=== PATIENT | male | born 1990 | race Hispanic/Latino ===

== ENCOUNTER 2019-08-22 22:04 | Emergency (ER) | payer SELFPAY ==
[2019-08-22] MEDS ORDERED: ACETAMINOPHEN 500 MG TAB ONE (22:48)
--- NOTE | 2019-08-23 00:29 | ER ---
Nurse's Notes [facility] Name: Tayo Lacy Age: 29 yrs Sex: Male : 1990 Arrival Date: 08/22/2019 Time: 22:04 Bed 17 Private MD: Diagnosis: Acute pharyngitis Presentation: 08/21 22:31 Chief complaint: Patient states: SYMPTOMS STARTED FOUR DAYS AGO. SORE THROAT WITH rv HEADACHE AND BODY ACHES. ALSO COMPLAINS EPISODES OF DISORIENTATION. Coronavirus screen: Surgical mask placed on patient. Patient moved to private room, placed in contact and droplet isolation with eye protection until further assessment. Patient reports a cough. Patient denies shortness of breath or difficulty breathing. Patient reports a measured and/or subjective temperature greater than 100.4F. Patient denies travel on a cruise ship or to a country the [facility] currently lists as an affected area. Patient denies contact with known and/or suspected case of COVID-19. Ebola Screen: No symptoms or risks identified at this time. Initial Sepsis Screen: Does the patient meet any 2 criteria? No. Patient's initial sepsis screen is negative. Does the patient have a suspected source of infection? No. Patient's initial sepsis screen is negative. Risk Assessment: Do you want to hurt yourself or someone else? Patient reports no desire to harm self or others. Onset of symptoms was August 18, 2019 at 08:00. 22:31 Method Of Arrival: Ambulatory rv 22:31 Acuity: JORGE 3 rv 08/22 10:26 Coronavirus screen: [facility] has been notified of hb person under investigation for COVID-19. PUI#: [id number]. Triage Assessment: 08/21 22:33 General: Appears comfortable, Behavior is calm, cooperative. Pain: Complains of pain in rv GENERALIZED. EENT: Throat has enlarged tonsils. Neuro: Level of Consciousness is awake, alert, obeys commands, Oriented to person, place, time, situation. Cardiovascular: Patient's skin is warm and dry. Respiratory: Airway is patent. Derm: Skin is intact. Historical: - Allergies: 22:33 No Known Allergies; rv - PMHx: 22:33 None; rv - PSHx: 22:33 None; rv - Immunization history:: Adult Immunizations up to date. - Social history:: Smoking status: Patient reports the use of cigarette tobacco products, denies chronic smoking, but will smoke occasionally. Screenin:35 Abuse screen: Denies threats or abuse. Denies injuries from another. Nutritional rv screening: No deficits noted. Tuberculosis screening: No symptoms or risk factors identified. Fall Risk None identified. Assessment: 08/22 00:16 Reassessment: Patient and/or family updated on plan of care and expected duration. Pain rv level reassessed. Patient is alert, oriented x 3, equal unlabored respirations, skin warm/dry/pink. Patient states feeling better. Patient states symptoms have improved. Respiratory: Airway is patent Respiratory effort is even, unlabored, Breath sounds are clear bilaterally. Vital Signs: 08/21 22:31 BP 133 / 83; Pulse 96; Resp 18; Temp 100.9; Pulse Ox 100% ; Weight 97.52 kg; Height 5 rv ft. 6 in. (167.64 cm); Pain 4/10; 08/22 00:16 BP 126 / 77; Pulse 90; Resp 18; Temp 98.6; Pulse Ox 97% on R/A; rv 00:17 Temp 98.6(O); rv 00:45 BP 113 / 69; Pulse 82; Resp 17; Temp 98.5; Pulse Ox 98% on R/A; rv 08/21 22:31 Body Mass Index 34.70 (97.52 kg, 167.64 cm) rv ED Course: 08/21 22:04 Patient arrived in ED. ds1 22:33 Triage completed. rv 22:35 Sherwin Adams, RN is Primary Nurse. rv 22:35 Arm band placed on Patient placed in the treatment room, on a stretcher, Patient rv notified of wait time. 22:38 José Antonio Butt PA is PHCP. jr8 22:38 Martir Godinez MD is Attending Physician. jr8 22:45 Patient has correct armband on for positive identification. Pulse ox on. NIBP on. rv 08/22 00:45 No provider procedures requiring assistance completed. Patient did not have IV access rv during this emergency room visit. Administered Medications: 08/21 22:44 Drug: Tylenol 1000 mg Route: PO; rv 08/22 00:17 Follow up: Temp 98.6 Oral; Response: Temperature is decreased rv Outcome: 00:28 Discharge ordered by MD. haskins 00:45 Discharged to home ambulatory. rv 00:45 Condition: good 00:45 Discharge instructions given to patient, Instructed on discharge instructions, follow up and referral plans. medication usage, Demonstrated understanding of instructions, follow-up care, medications, Prescriptions given X 1. 00:46 Patient left the ED. rv Addendum: 08/25/2019 18:16 Addendum: COVID-19 Result: Positive result giiven to ED physician to notify pt. s s Physician was able to contact pt and pt was notified of positive COVID-19 swab result. Physician answered pt questions. Other: notified by Dr. Crump. Signatures: Carolyn Egan ds1 Glenna Barrientos, RN RN José Antonio Corey PA PA jr8 Breana Yip, RN RN Sherwin Adams RN RN rv
--- NOTE | 2019-08-23 00:29 | EDPHYS ---
Physician Documentation [facility] Name: Tayo Lacy Age: 29 yrs Sex: Male : 1990 Arrival Date: 08/22/2019 Time: 22:04 Bed 17 Private MD: ED Physician Martir Godinez HPI: 08/21 23:00 This 29 yrs old Male presents to ER via Ambulatory with complaints of Sore jr8 Throat. 23:00 The patient presents with sore throat. The patient describes throat pain as constant. jr8 Onset: The symptoms/episode began/occurred gradually, 4 day(s) ago. Severity of symptoms: At their worst the symptoms were moderate, in the emergency department the symptoms are unchanged. Modifying factors: The symptoms are alleviated by nothing, the symptoms are aggravated by swallowing. Associated signs and symptoms: Pertinent positives: fever, body aches, headache, fatigue . The patient has not experienced similar symptoms in the past. The patient has not recently seen a physician. Historical: - Allergies: 22:33 No Known Allergies; rv - PMHx: 22:33 None; rv - PSHx: 22:33 None; rv - Immunization history:: Adult Immunizations up to date. - Social history:: Smoking status: Patient reports the use of cigarette tobacco products, denies chronic smoking, but will smoke occasionally. ROS: 23:00 Eyes: Negative for injury, pain, redness, and discharge, Neck: Negative for injury, jr8 pain, and swelling, Cardiovascular: Negative for chest pain, palpitations, and edema, Respiratory: Negative for shortness of breath, cough, wheezing, and pleuritic chest pain, Abdomen/GI: Negative for abdominal pain, nausea, vomiting, diarrhea, and constipation, Back: Negative for injury and pain, MS/Extremity: Negative for injury and deformity, Skin: Negative for injury, rash, and discoloration. 23:00 Constitutional: Positive for body aches, chills, fever. 23:00 ENT: Positive for sore throat. 23:00 Neuro: Positive for headache. Exam: 23:00 Eyes: Pupils equal round and reactive to light, extra-ocular motions intact. Lids and jr8 lashes normal. Conjunctiva and sclera are non-icteric and not injected. Cornea within normal limits. Periorbital areas with no swelling, redness, or edema. Neck: Trachea midline, no thyromegaly or masses palpated, and no cervical lymphadenopathy. Supple, full range of motion without nuchal rigidity, or vertebral point tenderness. No Meningismus. Cardiovascular: Regular rate and rhythm with a normal S1 and S2. No gallops, murmurs, or rubs. Normal PMI, no JVD. No pulse deficits. Respiratory: Lungs have equal breath sounds bilaterally, clear to auscultation and percussion. No rales, rhonchi or wheezes noted. No increased work of breathing, no retractions or nasal flaring. Abdomen/GI: Soft, non-tender, with normal bowel sounds. No distension or tympany. No guarding or rebound. No evidence of tenderness throughout. Back: No spinal tenderness. No costovertebral tenderness. Full range of motion. Skin: Warm, dry with normal turgor. Normal color with no rashes, no lesions, and no evidence of cellulitis. MS/ Extremity: Pulses equal, no cyanosis. Neurovascular intact. Full, normal range of motion. Neuro: Awake and alert, GCS 15, oriented to person, place, time, and situation. Cranial nerves II-XII grossly intact. Motor strength 5/5 in all extremities. Sensory grossly intact. Cerebellar exam normal. Normal gait. 23:00 ENT: Exam is negative for earache, ear discharge, TM abnormalities, nasal discharge, Mouth: Lips: moist, Oral mucosa: pink and intact, moist, Gums: pink, Tongue: is moist, Posterior pharynx: Airway: patent, Tonsils: bilaterally enlarged, with erythema, with exudate, no ulcerations, Uvula: midline, non-edematous, no erythema, swelling, is not appreciated, erythema, that is moderate. Vital Signs: 22:31 BP 133 / 83; Pulse 96; Resp 18; Temp 100.9; Pulse Ox 100% ; Weight 97.52 kg; Height 5 rv ft. 6 in. (167.64 cm); Pain 10; 08/22 00:16 BP 126 / 77; Pulse 90; Resp 18; Temp 98.6; Pulse Ox 97% on R/A; rv 00:17 Temp 98.6(O); rv 00:45 BP 113 / 69; Pulse 82; Resp 17; Temp 98.5; Pulse Ox 98% on R/A; rv 0707 22:31 Body Mass Index 34.70 (97.52 kg, 167.64 cm) rv MDM: 08/21 22:38 Patient medically screened. 8 08/22 00:28 Data reviewed: vital signs, nurses notes, lab test result(s), and as a result, I will jr8 discharge patient. Data interpreted: Pulse oximetry: on room air is 97 %. Interpretation: normal. Counseling: I had a detailed discussion with the patient and/or guardian regarding: the historical points, exam findings, and any diagnostic results supporting the discharge/admit diagnosis, lab results, the need for outpatient follow up, a family practitioner, to return to the emergency department if symptoms worsen or persist or if there are any questions or concerns that arise at home. 08/21 22:48 Order name: Strep; Complete Time: 00:28 8 08/21 22:48 Order name: COVID-19 [facility] 08/22 00:31 Order name: Throat Culture EDMS Administered Medications: 08/21 22:44 Drug: Tylenol 1000 mg Route: PO; rv 08/22 00:17 Follow up: Temp 98.6 Oral; Response: Temperature is decreased rv Disposition: 08/23/19 00:28 Discharged to Home. Impression: Acute pharyngitis. - Condition is Stable. - Discharge Instructions: Pharyngitis. - Prescriptions for Clindamycin HCl 300 mg Oral Capsule - take 1 capsule by ORAL route every 6 hours for 10 days; 40 capsule. - Medication Reconciliation Form, Thank You Letter, Antibiotic Education, Prescription Opioid Use form. - Follow up: Private Physician; When: 2 - 3 days; Reason: Recheck today's complaints, Continuance of care, Re-evaluation by your physician. - Problem is new. - Symptoms have improved. Addendum: 08/28/2019 16:39 Co-signature as Attending Physician, Martir Godinez MD I agree with the assessment and t w4 plan of care. Signatures: Dispatcher [employer] EDMS José Antonio Butt PA PA jr8 Martir Godinez MD MD tw4 Sherwin Adams, RN RN rv Corrections: (The following items were deleted from the chart) 08/22 00:46 00:28 08/23/2019 00:28 Discharged to Home. Impression: Acute pharyngitis. Condition is rv Stable. Forms are Medication Reconciliation Form, Thank You Letter, Antibiotic Education, Prescription Opioid Use. Follow up: Private Physician; When: 2 - 3 days; Reason: Recheck today's complaints, Continuance of care, Re-evaluation by your physician. Problem is new. Symptoms have improved. jr8
[2019-08-23 01:05] VITALS: BP 113/69; TEMP 98.5; O2SAT 98
== END 2019-08-23 00:46 | disposition home or self-care (01) ==
LOC: ER 22:04
DX: U07.1 COVID-19 (principal); J02.9 Acute pharyngitis, unspecified; Z72.0 Tobacco use
CPT/HCPCS: 87070; 87081; 99283; U0001

== ENCOUNTER 2020-09-22 23:39 | Emergency (ER) | payer SELFPAY ==
[2020-09-23 00:43] LABS: Urine Blood Negative (Negative); Urine Glucose Negative (Negative); Urine Protein Negative (Negative); Urine Specific Gravity 1.025 (1.005-1.030)
[2020-09-23 01:59] LABS: Absolute Lymphocytes (CBC) 2.1 K/uL (0.7-4.9); Basophils % 0.6 % (0-1.3); Hematocrit 46.4 % (39.6-49.0); Lymphocytes % 17.2 % (15.3-44.8); RBC Red Blood Cell Count 5.68 M/uL (4.33-5.43)
[2020-09-23 02:07] LABS: ALT/SGPT 55 U/L (12-78); AST/SGOT 23 U/L (15-37); Albumin 4.2 g/dL (3.4-5.0); Alkaline Phosphatase 106 U/L (45-117); BUN Blood Urea Nitrogen 16 mg/dL (7-18); Bicarbonate 29 mmol/L (21-32); Bilirubin Direct 0.2 mg/dL (0-0.2); Bilirubin Total 0.6 mg/dL (0.2-1.0); Glucose Level 96 mg/dL (74-106); Lipase 118 U/L (73-393); Potassium 3.2 mmol/L (3.5-5.1); Protein, Total 8.1 g/dL (6.4-8.2); Sodium Level 142 mmol/L (136-145)
[2020-09-23] MEDS ORDERED: NA CHLORIDE 0.9% 1,000 ML ONE (02:58)
[2020-09-23] MEDS ORDERED: ONDANSETRON 4 MG/2 ML VIAL ONE (02:58)
[2020-09-23] MEDS ORDERED: MORPHINE 4 MG/ML SYR ONE (02:58)
--- NOTE | 2020-09-23 03:40 | ER ---
Nurse's Notes [facility] Name: Tayo Lacy Age: 30 yrs Sex: Male : 1990 Arrival Date: 09/22/2020 Time: 23:41 Bed 13 Private MD: Diagnosis: Acute uncomplicated sigmoid diverticulitis Presentation: 09/23 00:06 Chief complaint: Patient states: Lower abdominal pain, diarrhea since Wednesday. kg Coronavirus screen: Client denies travel out of the [place] in the last 14 days. At this time, unable to obtain information related to travel outside the [place] At this time, the client does not indicate any symptoms associated with coronavirus-19. Ebola Screen: Patient negative for fever greater than or equal to 101.5 degrees Fahrenheit, and additional compatible Ebola Virus Disease symptoms Patient denies exposure to infectious person. Patient denies travel to an Ebola-affected area in the 21 days before illness onset. Initial Sepsis Screen: Does the patient meet any 2 criteria? No. Patient's initial sepsis screen is negative. Does the patient have a suspected source of infection? No. Patient's initial sepsis screen is negative. Risk Assessment: Do you want to hurt yourself or someone else? Patient reports no desire to harm self or others. Onset of symptoms was September 20, 2020. 00:06 Method Of Arrival: Ambulatory kg 00:06 Acuity: JORGE 3 kg Triage Assessment: 00:08 General: Appears in no apparent distress. Behavior is calm, cooperative, appropriate kg for age, quiet. Pain: Complains of pain in suprapubic area, right lower quadrant and left lower quadrant. GI: Reports lower abdominal pain, diarrhea. Historical: - Allergies: 00:08 No Known Allergies; kg - Home Meds: 00:08 None [Active]; kg - PMHx: 00:08 None; kg - PSHx: 00:08 None; kg - Immunization history:: Adult Immunizations not up to date, Client reports having NOT received the Covid vaccine. Adult Immunizations up to date. - Social history:: Smoking status: Patient denies any tobacco usage or history of. Screenin:09 Abuse screen: Denies threats or abuse. Denies injuries from another. Nutritional kg screening: No deficits noted. Tuberculosis screening: No symptoms or risk factors identified. Fall Risk None identified. Assessment: 01:30 General: Appears in no apparent distress. Behavior is calm, cooperative. Pain: lp1 Complains of pain in suprapubic area Pain currently is 6 out of 10 on a pain scale. Neuro: Level of Consciousness is awake, alert, obeys commands, Oriented to person, place, time, situation. Cardiovascular: Patient's skin is warm and dry. Respiratory: Respiratory effort is even, unlabored. GI: Abdomen is non-distended, Bowel sounds present X 4 quads. Abdomen is tender to palpation in suprapubic area. : No signs and/or symptoms were reported regarding the genitourinary system. EENT: No signs and/or symptoms were reported regarding the EENT system. Derm: Skin is pink, warm \T\ dry. Musculoskeletal: No deficits noted. 03:30 Reassessment: Verbal order from Dr. Dunbar for Flagyl 500mg IV , Ciprofloxacin 400mg IV. lp1 04:30 Reassessment: IV fluids infusing; aware of pending discharge. lp1 Vital Signs: 00:06 BP 135 / 95; Pulse 93; Resp 20; Temp 99.4(O); Pulse Ox 100% on R/A; Weight 97.52 kg kg (R); Height 5 ft. 6 in. (167.64 cm) (R); Pain 8/10; 02:30 BP 134 / 87; Pulse 79; Resp 18; Pulse Ox 98% on R/A; lp1 03:30 BP 126 / 82; Pulse 73; Resp 18; Pulse Ox 100% on R/A; lp1 04:30 BP 106 / 77; Pulse 73; Resp 18; Pulse Ox 100% on R/A; lp1 05:41 BP 111 / 77; Pulse 68; Resp 18; Pulse Ox 100% on R/A; lp1 00:06 Body Mass Index 34.70 (97.52 kg, 167.64 cm) kg ED Course: 09/22 23:41 Patient arrived in ED. bp1 09/23 00:08 Triage completed. kg 00:08 Arm band placed on right wrist. kg 00:09 Patient has correct armband on for positive identification. kg 01:27 Inserted saline lock: 20 gauge in left antecubital area, using aseptic technique. Blood oe collected. 01:29 Ward Dunbar MD is Attending Physician. pkl 02:22 Johanna Castro, RN is Primary Nurse. lp1 02:34 CT Abd/Pelvis - IV Contrast Only In Process Unspecified. EDMS 05:18 No provider procedures requiring assistance completed. lp1 05:41 IV discontinued, No redness/swelling at site. Pressure dressing applied. lp1 Administered Medications: 02:42 Drug: NS 0.9% 1000 ml Route: IV; Rate: 1000 ml; Site: left antecubital; bs2 04:00 Follow up: IV Status: Completed infusion; IV Intake: 1000ml lp1 02:42 Drug: morphine 4 mg Route: IVP; Site: left antecubital; bs2 04:00 Follow up: Response: No adverse reaction lp1 02:42 Drug: Zofran (Ondansetron) 4 mg Route: IVP; Site: left antecubital; bs2 04:00 Follow up: Response: No adverse reaction lp1 03:30 Drug: Dilaudid (HYDROmorphone) 1 mg {Note: verbal order .} Route: IVP; Site: left bs2 antecubital; 04:00 Drug: Flagyl (metroNIDAZOLE) 500 mg Volume: 100 ml; Route: IVPB; Rate: 200 ml/hr; lp1 Infused Over: 30 mins; Site: right antecubital; 04:30 Follow up: IV Status: Completed infusion; IV Intake: 100ml lp1 04:30 Drug: Ciprofloxacin 400 mg Volume: 200 ml; Route: IVPB; Infused Over: 60 mins; Site: lp1 right antecubital; 05:41 Follow up: IV Status: Completed infusion; IV Intake: 200ml lp1 Intake: 04:00 IV: 1000ml; Total: 1000ml. lp1 04:30 IV: 100ml; Total: 1100ml. lp1 05:41 IV: 200ml; Total: 1300ml. lp1 Outcome: 03:40 Discharge ordered by . pkl 05:42 Discharged to home ambulatory. lp1 05:42 Condition: good 05:42 Discharge instructions given to patient, Instructed on discharge instructions, follow up and referral plans. medication usage, Demonstrated understanding of instructions, follow-up care, medications, Prescriptions given X 2. 05:42 Patient left the ED. lp1 Signatures: Dispatcher [employer] EDMS Ward Dunbar MD MD pkJohanna Huang, RN RN lp1 Ebenezer Duval Brittany bp1 Graham, Kristen, RN RN kg Gracie Choudhury, RN RN bs2
--- NOTE | 2020-09-23 03:41 | EDPHYS ---
Physician Documentation [facility] Name: Tayo Lacy Age: 30 yrs Sex: Male : 1990 Arrival Date: 09/22/2020 Time: 23:41 Bed 13 Private MD: ED Physician Ward Dunbar HPI: 09/23 02:03 This 30 yrs old Male presents to ER via Ambulatory with complaints of pkl Abdominal Pain. 02:03 The patient presents with abdominal pain in the lower abdomen. Onset: The pkl symptoms/episode began/occurred 2 day(s) ago. The symptoms do not radiate. Associated signs and symptoms: Pertinent positives: diarrhea. Historical: - Allergies: 00:08 No Known Allergies; kg - Home Meds: 00:08 None [Active]; kg - PMHx: 00:08 None; kg - PSHx: 00:08 None; kg - Immunization history:: Adult Immunizations not up to date, Client reports having NOT received the Covid vaccine. Adult Immunizations up to date. - Social history:: Smoking status: Patient denies any tobacco usage or history of. ROS: 02:03 Eyes: Negative for injury, pain, redness, and discharge, ENT: Negative for injury, pkl pain, and discharge, Neck: Negative for injury, pain, and swelling, Cardiovascular: Negative for chest pain, palpitations, and edema, Respiratory: Negative for shortness of breath, cough, wheezing, and pleuritic chest pain. 02:03 Abdomen/GI: Positive for abdominal pain, diarrhea, of the right lower quadrant and left lower quadrant. 02:03 Back: Negative for acute changes. 02:03 : Negative for urinary symptoms. 02:03 MS/extremity: Negative for acute changes. 02:03 Skin: Negative for rash. 02:03 Neuro: Negative for altered mental status, loss of consciousness. Exam: 02:03 Head/Face: Normocephalic, atraumatic. Eyes: Pupils equal round and reactive to light, pkl extra-ocular motions intact. Lids and lashes normal. Conjunctiva and sclera are non-icteric and not injected. Cornea within normal limits. Periorbital areas with no swelling, redness, or edema. ENT: Nares patent. No nasal discharge, no septal abnormalities noted. Tympanic membranes are normal and external auditory canals are clear. Oropharynx with no redness, swelling, or masses, exudates, or evidence of obstruction, uvula midline. Mucous membranes moist. Neck: Trachea midline, no thyromegaly or masses palpated, and no cervical lymphadenopathy. Supple, full range of motion without nuchal rigidity, or vertebral point tenderness. No Meningismus. Chest/axilla: Normal chest wall appearance and motion. Nontender with no deformity. No lesions are appreciated. Cardiovascular: Regular rate and rhythm with a normal S1 and S2. No gallops, murmurs, or rubs. Normal PMI, no JVD. No pulse deficits. Respiratory: Lungs have equal breath sounds bilaterally, clear to auscultation and percussion. No rales, rhonchi or wheezes noted. No increased work of breathing, no retractions or nasal flaring. 02:03 Abdomen/GI: Bowel sounds: normal, Palpation: soft, mild abdominal tenderness, in the right lower quadrant and left lower quadrant. 02:03 Back: Exam negative for acute changes. 02:03 : Exam negative for acute changes. 02:03 Musculoskeletal/extremity: Exam is negative for acute changes. 02:03 Skin: Exam negative for rash. 02:03 Neuro: Orientation: is normal, Mentation: is normal, Cranial nerves: grossly normal, Motor: is normal. Vital Signs: 00:06 BP 135 / 95; Pulse 93; Resp 20; Temp 99.4(O); Pulse Ox 100% on R/A; Weight 97.52 kg kg (R); Height 5 ft. 6 in. (167.64 cm) (R); Pain 8/10; 02:30 BP 134 / 87; Pulse 79; Resp 18; Pulse Ox 98% on R/A; lp1 03:30 BP 126 / 82; Pulse 73; Resp 18; Pulse Ox 100% on R/A; lp1 04:30 BP 106 / 77; Pulse 73; Resp 18; Pulse Ox 100% on R/A; lp1 05:41 BP 111 / 77; Pulse 68; Resp 18; Pulse Ox 100% on R/A; lp1 00:06 Body Mass Index 34.70 (97.52 kg, 167.64 cm) kg MDM: 01:29 Patient medically screened. pkl 03:36 Data reviewed: vital signs, nurses notes, lab test result(s), radiologic studies, CT pkl scan. ED course: Discussed lab and CT Scan result with patient. Advised to return for re - evaluation if abdominal pain is worse. Patient understood instruction. 08 00:10 Order name: Basic Metabolic Panel; Complete Time: 02:32 kg 08 00:10 Order name: CBC with Diff; Complete Time: 02:01 kg 08 00:10 Order name: Hepatic Function; Complete Time: 02:32 kg 09/23 00:10 Order name: Lipase; Complete Time: 02:32 kg 09/23 00:42 Order name: Urine Dipstick-Ancillary; Complete Time: 01:30 EDMS 08 01:57 Order name: CT Abd/Pelvis - IV Contrast Only pkl 09/23 00:10 Order name: IV Saline Lock; Complete Time: 01:47 kg 09/23 00:10 Order name: Labs collected and sent; Complete Time: 01:47 kg Administered Medications: 02:42 Drug: NS 0.9% 1000 ml Route: IV; Rate: 1000 ml; Site: left antecubital; bs2 04:00 Follow up: IV Status: Completed infusion; IV Intake: 1000ml lp1 02:42 Drug: morphine 4 mg Route: IVP; Site: left antecubital; bs2 04:00 Follow up: Response: No adverse reaction lp1 02:42 Drug: Zofran (Ondansetron) 4 mg Route: IVP; Site: left antecubital; bs2 04:00 Follow up: Response: No adverse reaction lp1 03:30 Drug: Dilaudid (HYDROmorphone) 1 mg {Note: verbal order .} Route: IVP; Site: left bs2 antecubital; 04:00 Drug: Flagyl (metroNIDAZOLE) 500 mg Volume: 100 ml; Route: IVPB; Rate: 200 ml/hr; lp1 Infused Over: 30 mins; Site: right antecubital; 04:30 Follow up: IV Status: Completed infusion; IV Intake: 100ml lp1 04:30 Drug: Ciprofloxacin 400 mg Volume: 200 ml; Route: IVPB; Infused Over: 60 mins; Site: lp1 right antecubital; 05:41 Follow up: IV Status: Completed infusion; IV Intake: 200ml lp1 Disposition Summary: 09/23/20 03:40 Discharge Ordered Location: Home pkl Problem: new pkl Symptoms: have improved pkl Condition: Stable pkl Diagnosis - Acute uncomplicated sigmoid diverticulitis pkl Followup: pkl - With: Private Physician - When: 2 - 3 days - Reason: Re-evaluation by your physician Discharge Instructions: - Discharge Summary Sheet pkl Forms: - Medication Reconciliation Form pkl - Thank You Letter pkl - Work release form pkl - Antibiotic Education pkl - Prescription Opioid Use pkl Prescriptions: - Flagyl 500 mg Oral Tablet - take 1 tablet by ORAL route every 6 hours for 7 days; 28 tablet; Refills: 0, pkl Product Selection Permitted - Cipro 500 mg Oral Tablet - take 1 tablet by ORAL route every 12 hours for 7 days; 14 tablet; Refills: 0, pkl Product Selection Permitted Signatures: Dispatcher [employer] Ward Dockery MD MD pkl Johanna Castro, RN RN lp1 Mayra Jeffers, RN RN kg Gracie Choudhury, RN RN bs2
[2020-09-23] MEDS ORDERED: HYDROMORPHONE HCL 2 MG/ML inj ONE (03:50)
[2020-09-23] MEDS ORDERED: CIPROFLOXACIN 400mg IV 400 MG/200 ML BAG IV ONE (03:51)
[2020-09-23] MEDS ORDERED: METRONIDAZOLE 500mg IVPB 500 MG/100 ML BAG IV ONE (03:51)
[2020-09-23 05:49] VITALS: TEMP 99.4
[2020-09-23 05:52] VITALS: O2SAT 100
[2020-09-23 05:57] VITALS: BP 111/77
--- NOTE | 2020-09-23 10:59 | RAD REPORT ---
EXAM DESCRIPTION: CT - Abdomen Pelvis W Contrast - 09/23/2020 6:51 am COMPARISON: None. CLINICAL HISTORY: ABD PAIN TECHNIQUE: CT of the abdomen and pelvis was acquired with IV contrast material. Coronal and sagitt al reconstructions were obtained. Automated exposure control was utilized on this examination as a dose lowering technique. FINDINGS: Lung bases: Clear. Liver: Normal. Gallbladder and biliary: Normal gallbladder. Unremarkable biliary tree. Pancreas: Normal. Spleen: Normal. Adrenal glands: Normal adrenal glands. Kidneys: 2 mm nonobstructing right renal calculus. Small bilateral renal cysts are noted. Stomach and Small Bowel: The stomach and small bowel are normal. Urinary bladder: Normal. Prostate/Male Urogenital: Normal. Colon and Appendix: Moderate sigmoid diverticulosis is present with focal wall thickening and adjacen t fat stranding. No evidence of appendicitis. Retroperitoneum and lymph nodes: Normal. Vascular: Normal. Peritoneal cavity: No ascites or free air. Musculoskeletal and soft tissues: Soft tissues are unremarkable. No aggressive bone lesions. No com pression fracture. IMPRESSION: 1. Acute uncomplicated sigmoid diverticulitis. 2. Small nonobstructing right renal calculus. Electronically signed by: Kory Rodriguez MD 09/23/2020 2:44 AM CDT Due to temporary technical issues with the PACS/Fluency reporting system, reports are being signed by the in house radiologist without review as a courtesy to ensure prompt reporting. The interpreting r adiologist is fully responsible for the content of the report.
== END 2020-09-23 05:42 | disposition home or self-care (01) ==
LOC: ER 23:39
DX: K57.32 Diverticulitis of large intestine without perforation or abscess without bleeding (principal)
CPT/HCPCS: 36415; 74177; 80048; 80076; 81003; 83690; 85025; 96361; 96365; 96367; 96375; 99284; J0744; J1170; J2405; J7030; Q9967

== ENCOUNTER → 2023-04-30 | Emergency (ER) | payer OTHER, SELFPAY ==
[~2023-04-30] MED LIST: KETOROLAC 30 MG/ML INJ ONE; methocarbamoL 500 MG TAB ONE
--- NOTE | 2023-04-30 22:37 | RAD REPORT ---
EXAM DESCRIPTION: CT - CTHCSPWOC - 04/30/2023 9:57 pm CLINICAL HISTORY: pain head and neck COMPARISON: No comparisons TECHNIQUE: Axial thin cut noncontrast CT images of the head were obtained. Axial thin cut noncontrast CT images of the cervical spine were obtained. Multiplanar reformatted images were generated and reviewed. All CT scans are performed using dose optimization technique as appropriate and may include automated exposure control or mA/KV adjustment according to patient size. FINDINGS: CT HEAD WITHOUT CONTRAST: No acute hemorrhage, hydrocephalus or extra-axial collection is identified.No areas of brain edema or midline shift. Right maxillary sinus mucous retention cyst.The calvarium is intact. CT CERVICAL SPINE WITHOUT CONTRAST: No fracture or subluxation.No prevertebral soft tissues swelling is identified. IMPRESSION: No acute traumatic intracranial or cervical spine findings.
--- NOTE | 2023-05-01 00:14 | EDPHYS ---
Physician Documentation [facility] Name: Tayo Lacy Age: 32 yrs Sex: Male : 1990 Arrival Date: 04/30/2023 Time: 21:13 Bed 17 Private MD: ED Physician Buzz Pak HPI: 04/29 21:19 This 32 yrs old Male presents to ER via Unassigned with complaints of Neck sp4 Pain, >24Hrs Old. 04/30 20:42 32-year-old male presents with complaint of left-sided headache left-sided neck pain sp4 starting 3 days ago.. Historical: - Allergies: 04/29 21:34 No Known Allergies; kd3 - Immunization history:: Adult Immunizations up to date. - Social history:: Smoking status: Patient denies any tobacco usage or history of. - Family history:: not pertinent. ROS: 04/30 20:42 Constitutional: Negative for fever, chills, and weight loss, positive headache, sp4 positive head and neck pain All other systems are negative, Exam: 20:42 Constitutional: This is a well developed, well nourished patient who is awake, alert, sp4 and in no acute distress. Head/Face: Normocephalic, atraumatic. Eyes: Pupils equal round and reactive to light, extra-ocular motions intact. Lids and lashes normal. Conjunctiva and sclera are not injected. Cornea within normal limits. Periorbital areas with no swelling, redness, or edema. ENT: Nares patent. No nasal discharge, no septal abnormalities noted. Tympanic membranes are normal and external auditory canals are clear. Oropharynx with no redness, swelling, or masses, exudates, or evidence of obstruction, uvula midline. Mucous membranes moist. Neck: Trachea midline, no thyromegaly or masses palpated, and no cervical lymphadenopathy. Supple, full range of motion without nuchal rigidity, or vertebral point tenderness. Chest/axilla: Normal chest wall appearance and motion. Nontender with no deformity. No lesions are appreciated. Cardiovascular: Regular rate and rhythm with a normal S1 and S2. No gallops, murmurs, or rubs. Normal PMI, no JVD. No pulse deficits. Respiratory: Lungs have equal breath sounds bilaterally, clear to auscultation and percussion. No rales, rhonchi or wheezes noted. No increased work of breathing, no retractions or nasal flaring. Abdomen/GI: Soft, with normal bowel sounds. No distension or tympany. No guarding or rebound. No evidence of tenderness throughout. Back: No spinal tenderness. No costovertebral tenderness. Skin: Warm, dry with normal turgor. Normal color with no rashes, no lesions, and no evidence of cellulitis. MS/ Extremity: Pulses equal, no cyanosis. Neurovascular intact. Full, normal range of motion. Neuro: Awake and alert, GCS 15, oriented to person, place, time, and situation. Cranial nerves II-XII grossly intact. Motor strength 5/5 in all extremities. Sensory grossly intact. Psych: Awake, alert, with orientation to person, place and time. Behavior, mood, and affect are within normal limits 20:47 Neuro: Exam negative for focal neuro deficits, motor deficits, sensory deficits, sp4 cerebellar deficits, Vital Signs: 04/29 21:30 BP 153 / 95; Pulse 75; Resp 16; Temp 98.3(O); Pulse Ox 100% ; Weight 99.79 kg; Height 5 kd3 ft. 6 in. ; Pain 3/10; 22:30 BP 146 / 89; Pulse 70; Resp 16; Pulse Ox 100% on R/A; pf1 23:30 BP 141 / 78; Pulse 69; Resp 16; Pulse Ox 100% on R/A; Pain 7/10; pf1 04/30 00:30 BP 139 / 76; Pulse 71; Resp 16; Temp 98.1; Pulse Ox 99% on R/A; Pain 5/10; pf1 04/29 21:30 Body Mass Index 35.51 (99.79 kg, 167.64 cm) kd3 04/29 21:30 Pain Scale: Adult kd3 23:30 Pain Scale: Adult pf1 04/30 00:30 Pain Scale: Adult pf1 Cordova Coma Score: 20:42 Eye Response: spontaneous(4). Motor Response: obeys commands(6). Verbal Response: sp4 oriented(5). Total: 15. MDM: 04/29 22:35 Patient medically screened. sp4 04/30 20:42 Differential diagnosis: Cervical Raiculopathy Cervical Spondylosis cervical strain, sp4 Degenerative Disc Disease. Data reviewed: vital signs, nurses notes, old medical records, radiologic studies, CT scan. 20:46 ED course: EXAM DESCRIPTION: CT - CTHCSPWOC - 04/30/2023 9:57 pm CLINICAL HISTORY: pain sp4 head and neck COMPARISON: No comparisons TECHNIQUE: Axial thin cut noncontrast CT images of the head were obtained. Axial thin cut noncontrast CT images of the cervical spine were obtained. Multiplanar reformatted images were generated and reviewed. All CT scans are performed using dose optimization technique as appropriate and may include automated exposure control or mA/KV adjustment according to patient size. FINDINGS: CT HEAD WITHOUT CONTRAST: No acute hemorrhage, hydrocephalus or extra-axial collection is identified.No areas of brain edema or midline shift. Right maxillary sinus mucous retention cyst.The calvarium is intact. CT CERVICAL SPINE WITHOUT CONTRAST: No fracture or subluxation.No prevertebral soft tissues swelling is identified. IMPRESSION: No acute traumatic intracranial or cervical spine findings.. 04/29 21:28 Order name: CT Head C Spine; Complete Time: 23:58 sp4 Administered Medications: 04/29 21:40 Drug: Ketorolac IM 60 mg IM once Route: IM; Site: right ventrogluteal; pf1 22:30 Follow up: Response: No adverse reaction; Marked relief of symptoms; Pain is decreased pf1 21:40 Drug: Methocarbamol PO 1500 mg PO once Route: PO; pf1 22:30 Follow up: Response: No adverse reaction; Marked relief of symptoms; Pain is decreased pf1 Disposition Summary: 05/01/23 00:13 Discharge Ordered Notes: Please see pocketed spring assembler for repeat assessment in 2 weeks Location: Home sp4 Problem: new sp4 Symptoms: have improved sp4 Condition: Stable sp4 Diagnosis - Acute neck pain left side sp4 Followup: sp4 - With: Mike Gaines DO - When: 10 - 14 days - Reason: Recheck today's complaints Discharge Instructions: - Discharge Summary Sheet sp4 - Musculoskeletal Pain sp4 Forms: - Patient Portal Instructions sp4 Prescriptions: - Tramadol 50 mg Oral tablet - take 1 tablet ORAL route every 8 hours as needed; 25 tablet; Refills: 0, sp4 Product Selection Permitted - methocarbamol 750 mg Oral tablet - take 2 tablets ORAL route 4 times per day for 2 days; 60 tablet; Refills: 0, sp4 Product Selection Permitted Signatures: Dispatcher [employer] Shahana Chicas RN RN kd3 Lena Urrutia RN RN pf1 Buzz Pak MD MD sp4
--- NOTE | 2023-05-01 00:14 | ER ---
Nurse's Notes [facility] Name: Tayo Lacy Age: 32 yrs Sex: Male : 1990 Arrival Date: 04/30/2023 Time: 21:13 Bed 17 Private MD: Diagnosis: Acute neck pain left side Presentation: 04/29 21:30 Chief complaint: Patient states: about 7 days ago i started to get a pain on the left kd3 side of my neck behind my ear. I thought i just slept wrong. As the time has gone on, i have felt the pain going down my neck and into my left shoulder. The muscles feel like they are spasming. Right now the pain is a 3/10 but when the muscle spasms its like an 8/10. 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 Coronavirus screen: Vaccine status: Patient reports receiving the 1st dose of the Covid vaccine. Ebola Screen: No symptoms or risks identified at this time. Initial Sepsis Screen: Does the patient meet any 2 criteria? No. Patient's initial sepsis screen is negative. Does the patient have a suspected source of infection? No. Patient's initial sepsis screen is negative. Risk Assessment: Do you want to hurt yourself or someone else? Patient reports no desire to harm self or others. Onset of symptoms was April 30, 2023. 21:30 Method Of Arrival: Ambulatory kd3 21:30 Acuity: JORGE 3 kd3 Triage Assessment: 21:34 General: Appears in no apparent distress. Behavior is calm, cooperative. Pain: kd3 Complains of pain in left posterior aspect of neck, left lateral aspect of neck and left anterior aspect of neck. Historical: - Allergies: 21:34 No Known Allergies; kd3 - Immunization history:: Adult Immunizations up to date. - Social history:: Smoking status: Patient denies any tobacco usage or history of. - Family history:: not pertinent. Screenin:30 [facility] ED Fall Risk Assessment (Adult) History of falling in the last 3 months, pf1 including since admission No falls in past 3 months (0 pts) Confusion or Disorientation No (0 pts) Intoxicated or Sedated No (0 pts) Impaired Gait No (0 pts) Mobility Assist Device Used No (0 pt) Altered Elimination No (0 pt) Score/Fall Risk Level 0 - 2 = Low Risk Oriented to surroundings, Maintained a safe environment, Educated pt \T\ family on fall prevention, incl call for assistance when getting out of bed, Assessed \T\ reinforced patient's understanding of fall precautions, Provided non-skid footwear, Hourly rounding (assess needs \T\ fall precautionary measures) done, Used ambulatory aids as needed (educated on \T\ assisted with), Used gait belt as appropriate. 21:30 Abuse screen: Denies threats or abuse. Nutritional screening: No deficits noted. pf1 Tuberculosis screening: No symptoms or risk factors identified. Assessment: 04/28 21:30 General: Appears in no apparent distress. comfortable, well groomed, well developed, pf1 Behavior is calm, cooperative, appropriate for age, quiet. 21:30 Pain: Complains of pain in neck and left anterior aspect of neck and left lateral pf1 aspect of neck and left posterior aspect of neck Pain began 04/24/23. Neuro: No deficits noted. Level of Consciousness is awake, alert, obeys commands, Oriented to person, place, time, situation. Cardiovascular: No deficits noted. Capillary refill < 3 seconds Patient's skin is warm and dry. Respiratory: No deficits noted. Airway is patent Respiratory effort is even, unlabored, Respiratory pattern is regular, symmetrical, Breath sounds are clear bilaterally. GI: No deficits noted. No signs and/or symptoms were reported involving the gastrointestinal system. : No deficits noted. No signs and/or symptoms were reported regarding the genitourinary system. EENT: No deficits noted. No signs and/or symptoms were reported regarding the EENT system. Derm: No deficits noted. No signs and/or symptoms reported regarding the dermatologic system. Musculoskeletal: Reports pain in neck and left anterior aspect of neck and left lateral aspect of neck and left posterior aspect of neck since 04/24/23. 04/29 22:30 Reassessment: Patient appears in no apparent distress at this time. Patient and/or pf1 family updated on plan of care and expected duration. Pain level reassessed. Patient is alert, oriented x 3, equal unlabored respirations, skin warm/dry/pink. Patient states symptoms have improved. 23:30 Reassessment: Patient appears in no apparent distress at this time. Patient and/or pf1 family updated on plan of care and expected duration. Pain level reassessed. Patient is alert, oriented x 3, equal unlabored respirations, skin warm/dry/pink. Patient states feeling better. Patient states symptoms have improved. 04/30 00:30 Reassessment: Patient appears in no apparent distress at this time. Patient and/or pf1 family updated on plan of care and expected duration. Pain level reassessed. Patient is alert, oriented x 3, equal unlabored respirations, skin warm/dry/pink. Patient states feeling better. Patient states symptoms have improved. Vital Signs: 04/29 21:30 BP 153 / 95; Pulse 75; Resp 16; Temp 98.3(O); Pulse Ox 100% ; Weight 99.79 kg; Height 5 kd3 ft. 6 in. ; Pain 3/10; 22:30 BP 146 / 89; Pulse 70; Resp 16; Pulse Ox 100% on R/A; pf1 23:30 BP 141 / 78; Pulse 69; Resp 16; Pulse Ox 100% on R/A; Pain 7/10; pf1 04/30 00:30 BP 139 / 76; Pulse 71; Resp 16; Temp 98.1; Pulse Ox 99% on R/A; Pain 5/10; pf1 04/29 21:30 Body Mass Index 35.51 (99.79 kg, 167.64 cm) kd3 04/29 21:30 Pain Scale: Adult kd3 23:30 Pain Scale: Adult pf1 04/30 00:30 Pain Scale: Adult pf1 Amanda Coma Score: 20:42 Eye Response: spontaneous(4). Motor Response: obeys commands(6). Verbal Response: sp4 oriented(5). Total: 15. ED Course: 04/29 21:15 Patient arrived in ED. hb 21:19 Buzz Pak MD is Attending Physician. sp4 21:30 Door closed. Noise minimized. pf1 21:34 Triage completed. kd3 21:34 Arm band placed on right wrist. kd3 21:35 Patient has correct armband on for positive identification. Placed in gown. Bed in low pf1 position. Call light in reach. 21:57 CT Head C Spine In Process Unspecified. EDMS 04/30 00:11 Mike Gaines DO is Referral Physician. sp4 00:30 Provided Education on: prescriptions. pf1 00:30 No provider procedures requiring assistance completed. Patient did not have IV access pf1 during this emergency room visit. Administered Medications: 04/29 21:40 Drug: Ketorolac IM 60 mg IM once Route: IM; Site: right ventrogluteal; pf1 22:30 Follow up: Response: No adverse reaction; Marked relief of symptoms; Pain is decreased pf1 21:40 Drug: Methocarbamol PO 1500 mg PO once Route: PO; pf1 22:30 Follow up: Response: No adverse reaction; Marked relief of symptoms; Pain is decreased pf1 Medication: 04/30 00:30 VIS not applicable for this client. pf1 Outcome: 00:13 Discharge ordered by . sp4 00:30 Discharged to home ambulatory, pf1 00:30 Condition: improved 00:30 Discharge instructions given to patient, Instructed on discharge instructions, follow up and referral plans. Demonstrated understanding of instructions, follow-up care, medications, Prescriptions given X 2, 00:32 Patient left the ED. pf1 Signatures: Dispatcher [employer] EDHI Breana Yip RN RN Shahana Lomeli RN RN kd3 Lena Urrutia RN RN pf1 Buzz Pak MD MD sp4
[2023-05-01 00:51] VITALS: BP 153/95; TEMP 98.3; O2SAT 100
== END ==
LOC: ER 21:13
DX: M54.2 Cervicalgia (principal); R51.9 Headache, unspecified
CPT/HCPCS: 70450; 72125; 96372; 99284

== ENCOUNTER → 2023-05-02 | Emergency (ER) | payer OTHER ==
--- NOTE | 2023-05-02 13:50 | ER ---
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 hb Coronavirus screen: At this time, the client does not indicate any symptoms associated with coronavirus-19. Ebola Screen: No symptoms or risks identified at this time. Initial Sepsis Screen: Does the patient meet any 2 criteria? No. Patient's initial sepsis screen is negative. Does the patient have a suspected source of infection? No. Patient's initial sepsis screen is negative. Risk Assessment: Do you want to hurt yourself or someone else? Patient reports no desire to harm self or others. Onset of symptoms was April 30, 2023. 13:42 Method Of Arrival: Ambulatory hb 13:42 Acuity: JORGE 4 hb Triage Assessment: 13:44 General: Appears in no apparent distress. Behavior is calm, cooperative. Pain: Pain hb currently is 8 out of 10 on a pain scale. Neuro: Level of Consciousness is awake, alert, obeys commands, Oriented to person, place, time, situation, Facial droop on left, left eyebrow drooping. Cardiovascular: Patient's skin is warm and dry. Respiratory: Respiratory effort is even, unlabored, Respiratory pattern is regular, symmetrical. 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 - Social history:: Smoking status: Patient denies any tobacco usage or history of. Screenin:47 [facility] ED Fall Risk Assessment (Adult) History of falling in the last 3 months, hb including since admission No falls in past 3 months (0 pts) Confusion or Disorientation No (0 pts) Intoxicated or Sedated No (0 pts) Impaired Gait No (0 pts) Mobility Assist Device Used No (0 pt) Altered Elimination No (0 pt) Score/Fall Risk Level 0 - 2 = Low Risk Oriented to surroundings, Maintained a safe environment, Educated pt \\T\\ family on fall prevention, incl call for assistance when getting out of bed. Abuse screen: Denies threats or abuse. Denies injuries from another. Nutritional screening: No deficits noted. Tuberculosis screening: No symptoms or risk factors identified. Assessment: 13:47 General: See triage assessment.. hb Vital Signs: 13:42 BP 168 / 104; Pulse 82; Resp 16; Temp 98.3; Pulse Ox 100% on R/A; Weight 99.79 kg; hb Height 5 ft. 6 in. ; Pain 8/10; 13:42 Body Mass Index 35.51 (99.79 kg, 167.64 cm) hb 13:42 Pain Scale: Adult hb ED Course: 13:29 Patient arrived in ED. mg5 13:30 Mary Ang PA-C is PHCP. sb4 13:30 Alonzo Puga MD is Attending Physician. sb4 13:44 Triage completed. hb 13:45 Arm band placed on. hb 13:47 Patient has correct armband on for positive identification. Provided Education on: meds.hb 13:47 No provider procedures requiring assistance completed. Patient did not have IV access hb during this emergency room visit. Administered Medications: No medications were administered Medication: 13:47 VIS not applicable for this client. hb Outcome: 13:50 Discharge ordered by . sb4 14:04 Discharged to home ambulatory, hb 14:04 Condition: stable 14:04 Discharge instructions given to patient, Instructed on discharge instructions, follow up and referral plans. medication usage, Demonstrated understanding of instructions, follow-up care, medications, Prescriptions given X 2, 14:04 Patient left the ED. hb Signatures: Breana Yip RN RN Mary Mahan PA-C PA-C sb4 Halley Ybarra mg5 Corrections: (The following items were deleted from the chart) 13:45 13:44 Respiratory: Respiratory effort is even, unlabored, Respiratory pattern is hb hb
--- NOTE | 2023-05-02 13:50 | EDPHYS ---
Physician Documentation [facility] Name: Tayo Lacy Age: 32 yrs Sex: Male : 1990 Arrival Date: 05/02/2023 Time: 13:26 Bed IW1 Private MD: ED Physician Alonzo Puga HPI: 05/01 13:54 This 32 yrs old Male presents to ER via Ambulatory with complaints of lazcano's sb4 palsy. 13:54 Patient reports with left-sided facial paralysis, similar to his Lazcano's palsy episodes. sb4 He states that he felt the symptoms coming on last night and they were worse when he woke up this morning. Sensation intact. He has no other complaints at this time. States that he has responded well to steroids and antivirals in the past. 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 - Social history:: Smoking status: Patient denies any tobacco usage or history of. ROS: 13:54 Constitutional: Negative for fever, chills, and weight loss, sb4 13:54 Neuro: Positive for As per HPI, 13:54 All other systems are negative, Exam: 13:54 CT study not indicated or reported. Reason for not performing CT: Lazcano's palsy sb4 13:54 Constitutional: This is a well developed, well nourished patient who is awake, alert, and in no acute distress. Head/Face: Normocephalic, atraumatic. Eyes: Extra-ocular motions intact. Periorbital areas with no swelling, redness, or edema. ENT: Mucous membranes moist. Cardiovascular: Regular rate and rhythm with a normal S1 and S2. Respiratory: Lungs have equal breath sounds bilaterally, clear to auscultation and percussion. No rales, rhonchi or wheezes noted. No increased work of breathing, no retractions or nasal flaring. Abdomen/GI: Soft, non-tender, no distension. Skin: Warm, dry with normal turgor. Normal color with no rashes, no lesions, and no evidence of cellulitis. MS/ Extremity: Pulses equal, no cyanosis. Neurovascular intact. Full, normal range of motion. 13:54 Neuro: Exam negative for sensory deficits, cerebellar deficits, disorientation, dizziness, gait abnormality, memory loss, Cranial nerves: facial droop noted on left, with forehead involved. Ptosis of left outer canthus, Vital Signs: 13:42 BP 168 / 104; Pulse 82; Resp 16; Temp 98.3; Pulse Ox 100% on R/A; Weight 99.79 kg; hb Height 5 ft. 6 in. ; Pain 8/10; 13:42 Body Mass Index 35.51 (99.79 kg, 167.64 cm) hb 13:42 Pain Scale: Adult hb MDM: 13:34 Patient medically screened. sb4 13:54 Data reviewed: vital signs, nurses notes, and as a result, I will discharge patient. sb4 Test considered but Not performed: CT: Not indicated, Lazcano's palsy is a clinical diagnosis. Counseling: I had a detailed discussion with the patient and/or guardian regarding the historical points, exam findings, and any diagnostic results supporting the discharge/admit diagnosis, to return to the emergency department if symptoms worsen or persist or if there are any questions or concerns that arise at home. Administered Medications: No medications were administered Disposition Summary: 05/02/23 13:50 Discharge Ordered Notes: Location: Home sb4 Problem: new sb4 Symptoms: are unchanged sb4 Condition: Stable sb4 Diagnosis - Lazcano's palsy sb4 Followup: sb4 - With: Emergency Department - When: As needed - Reason: Trouble breathing, Worsening of condition Discharge Instructions: - Discharge Summary Sheet sb4 - Lazcano's Palsy, Adult sb4 Forms: - Thank You Letter sb4 - Patient Portal Instructions sb4 - Leadership Thank You Letter sb4 Prescriptions: - valacyclovir 1 gram Oral tablet - take 1 tablet ORAL route 3 times per day for 7 days; 21 tablet; Refills: 0, sb4 Product Selection Permitted - Prednisone 20 mg Oral tablet - take 3 tablets ORAL route once daily for 7 days; 21 tablet; Refills: 0, Product sb4 Selection Permitted Signatures: Breana Yip RN RN Mary Mahan PA-C PA-C sb4
[2023-05-02 14:29] VITALS: BP 168/104; TEMP 98.3; O2SAT 100
== END ==
LOC: ER 13:26
DX: G51.0 Bell's palsy (principal)
CPT/HCPCS: 99283

== ENCOUNTER 2024-03-23 17:57 | Emergency (ER) | payer OTHER ==
[2024-03-23] MEDS ORDERED: TDAP (DIPHTH,PERTUSS(ACELL),TET VAC) 0.5 ML VIAL IMVAC ONE (19:34)
[2024-03-23] MEDS ORDERED: LIDOCAINE 2% MPF 5 ML VIAL ONE (19:34)
[2024-03-23] MEDS ORDERED: LIDOCAINE 2% W/EPI 1:200,000 MPF 20 ML VIAL IM ONE (19:46)
--- NOTE | 2024-03-23 20:15 | ER ---
Nurse's Notes [facility] Name: Tayo Lacy Age: 33 yrs Sex: Male : 1990 Arrival Date: 03/23/2024 Time: 17:57 Bed 12 Private MD: Diagnosis: Laceration without foreign body of unspecified part of head Presentation: 03/23 18:28 Chief complaint: Patient states: a wrench slipped and hit him in the forehead. Denies me1 pain at this time. Coronavirus screen: Vaccine status: Patient reports receiving the 2nd dose of the covid vaccine. Ebola Screen: No symptoms or risks identified at this time. Complicating Factors:. Initial Sepsis Screen: Does the patient meet any 2 criteria? No. Patient's initial sepsis screen is negative. Does the patient have a suspected source of infection? No. Patient's initial sepsis screen is negative. Risk Assessment: Do you want to hurt yourself or someone else? Patient reports no desire to harm self or others. Onset of symptoms was March 23, 2024 at 17:00. 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 - Infectious Disease History:: Denies. - Social history:: Smoking status: Patient reports the use of cigarette tobacco products, denies chronic smoking, but will smoke occasionally. Screenin:46 [facility] ED Fall Risk Assessment (Adult) History of falling in the last 3 months, cp4 including since admission No falls in past 3 months (0 pts) Confusion or Disorientation No (0 pts) Intoxicated or Sedated No (0 pts) Impaired Gait No (0 pts) Mobility Assist Device Used No (0 pt) Altered Elimination No (0 pt) Score/Fall Risk Level 0 - 2 = Low Risk Oriented to surroundings, Maintained a safe environment, Assessed \T\ reinforced patient's understanding of fall precautions, Hourly rounding (assess needs \T\ fall precautionary measures) done. Abuse screen: Denies threats or abuse. Denies injuries from another. Nutritional screening: No deficits noted. Tuberculosis screening: No symptoms or risk factors identified. Assessment: 19:46 General: Appears in no apparent distress. Behavior is calm, cooperative, appropriate cp4 for age. Pain: Denies pain. Neuro: No deficits noted. Cardiovascular: Patient's skin is warm and dry. Respiratory: Airway is patent Respiratory effort is even, unlabored. GI: No signs and/or symptoms were reported involving the gastrointestinal system. : No signs and/or symptoms were reported regarding the genitourinary system. EENT: No signs and/or symptoms were reported regarding the EENT system. Derm: No signs and/or symptoms reported regarding the dermatologic system. Musculoskeletal: No signs and/or symptoms reported regarding the musculoskeletal system. Injury Description: Laceration is clean, jagged, 0.5 to 2.5 cm long, not bleeding. Vital Signs: 18:28 BP 155 / 105; Pulse 79; Resp 16; Temp 98.3; Pulse Ox 100% ; Weight 99.79 kg; Height 5 me1 ft. 6 in. ; Pain 0/10; 20:30 BP 148 / 95; Pulse 75; Resp 16; Pulse Ox 100% ; cp4 18:28 Body Mass Index 35.51 (99.79 kg, 167.64 cm) me1 18:28 Pain Scale: Adult la1 ED Course: 18:00 Patient arrived in ED. im 18:01 Hussain Hood PA is PHCP. cp 18:01 Hussain Calabrese MD is Attending Physician. cp 18:30 Triage completed. me1 18:30 Arm band placed on Patient placed in waiting room. me1 19:32 Sharifa Meeks is Primary Nurse. cp4 19:46 Bed in low position. Call light in reach. Side rails up X 1. Provided Education on: cp4 laceration. 19:46 Assist provider with laceration repair on forehead that was 2.5 cm. or less using cp4 sutures. Set up tray. Performed by Hussain MARIN Dressed with band aid, Patient tolerated well. Patient did not have IV access during this emergency room visit. Administered Medications: 19:46 Drug: Boostrix Tdap IM 0.5 ml IM once; as a single dose Route: IM; Site: left deltoid; cp4 20:07 Follow up: Response: No adverse reaction cp4 20:07 Drug: Lidocaine Infiltration (2 %) 5 ml 5 ml Infiltration once; with epinephrine {Note: cp4 Administered by provider..} Volume: 5 ml; Route: Infiltration; Medication: 19:46 VIS not applicable for this client. cp4 Outcome: 20:15 Discharge ordered by MD. cp 20:30 Discharged to home ambulatory, cp4 20:30 Condition: stable 20:30 Discharge instructions given to patient, Instructed on discharge instructions, follow up and referral plans. medication usage, Demonstrated understanding of instructions, follow-up care, medications, Prescriptions given X 1, 20:31 Patient left the ED. cp4 Signatures: Hussain Hood PA PA cp Mendoza, Itzel im Eddleman, Michelle, RN RN me1 Sharifa Meeks cp4
--- NOTE | 2024-03-23 20:15 | EDPHYS ---
Physician Documentation [facility] Name: Tayo Lacy Age: 33 yrs Sex: Male : 1990 Arrival Date: 03/23/2024 Time: 17:57 Bed 12 Private MD: ED Physician Hussain Calabrese HPI: 03/23 18:33 This 33 yrs old Male presents to ER via Ambulatory with complaints of cp Laceration To Forehead. 18:33 The patient or guardian reports injury, a laceration, clean. The complaints affect the cp forehead. 18:33 Context of injury: accidental, struck self with metal tool while working on vehicle. no cp LOC. minimal pain. Onset: The symptoms/episode began/occurred today, about 1700. 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 - Infectious Disease History:: Denies. - Social history:: Smoking status: Patient reports the use of cigarette tobacco products, denies chronic smoking, but will smoke occasionally. ROS: 18:35 Skin: Positive for laceration(s), of the forehead, cp 18:35 Constitutional: Negative for body aches, chills, fever, cp 18:35 Neuro: Positive for headache, Negative for altered mental status, loss of consciousness, numbness, weakness, 18:35 Eyes: Negative for injury, pain, redness, and discharge, cp 18:35 Cardiovascular: Negative for chest pain, 18:35 Respiratory: Negative for cough, shortness of breath, wheezing, 18:35 Abdomen/GI: Negative for abdominal pain, vomiting, diarrhea, constipation, 18:35 Back: Negative for pain at rest, pain with movement, 18:35 All other systems are negative, Exam: 18:40 Constitutional: The patient appears in no acute distress, alert, awake, well developed, cp well nourished, 18:40 Head/face: Noted is a laceration(s), that is deep, that is linear, of the right mid cp lower forehead, swelling, that is mild, 18:40 Eyes: Periorbital structures: appear normal, Pupils: equal, round, and reactive to light and accomodation, Extraocular movements: intact throughout, Conjunctiva: normal, no exudate, no injection, Lids and lashes: appear normal, bilaterally, 18:40 ENT: External ear(s): are unremarkable, Nose: is normal, Mouth: Lips: moist, Oral mucosa: moist, Posterior pharynx: Airway: no evidence of obstruction, patent, 18:40 Neck: C-spine: vertebral tenderness, is not appreciated, crepitus, is not appreciated, ROM/movement: is normal, is supple, without pain, no range of motions limitations, 18:40 Chest/axilla: Inspection: normal, 18:40 Cardiovascular: Rate: normal, Rhythm: regular, 18:40 Respiratory: the patient does not display signs of respiratory distress, Respirations: normal, no use of accessory muscles, no retractions, labored breathing, is not present, Breath sounds: are clear throughout, no decreased breath sounds, no stridor, no wheezing, 18:40 Abdomen/GI: Exam negative for discomfort, distension, guarding, Inspection: abdomen appears normal, 18:40 Back: pain, is absent, ROM is normal, 18:40 Neuro: Orientation: to person, place \T\ time. Mentation: is normal, Motor: moves all fours, strength is normal, Sensation: is normal, Gait: is steady, at a normal pace, without difficulty, Vital Signs: 18:28 BP 155 / 105; Pulse 79; Resp 16; Temp 98.3; Pulse Ox 100% ; Weight 99.79 kg; Height 5 me1 ft. 6 in. ; Pain 0/10; 20:30 BP 148 / 95; Pulse 75; Resp 16; Pulse Ox 100% ; cp4 18:28 Body Mass Index 35.51 (99.79 kg, 167.64 cm) me1 18:28 Pain Scale: Adult me1 Laceration: 20:05 Wound Repair of 2.5cm ( 1.0in ) subcutaneous laceration to forehead. Linear shaped.. cp Distal neuro/vascular/tendon intact. Anesthesia: Wound infiltrated with 4 mls of 2% lidocaine. Wound prep: Simple cleansing by me. Skin closed with 5 5-0 Prolene using interrupted sutures and sterile technique. Dressed with Bacitracin. Patient tolerated well. MDM: 18:40 Differential diagnosis: Hematoma on Laceration of Intracranial bleed- Concussion cp cerebral contusion, superficial laceration. 18:43 Medical Screening Exam initiated cp 20:15 Data reviewed: vital signs, nurses notes, and as a result, I will discharge patient. cp 20:15 I considered the following discharge prescriptions or medication management in the cp emergency department Medications were administered in the Emergency Department. See MAR. Counseling: I had a detailed discussion with the patient and/or guardian regarding the historical points, exam findings, and any diagnostic results supporting the discharge/admit diagnosis, to return to the emergency department if symptoms worsen or persist or if there are any questions or concerns that arise at home. Response to treatment: the patient's symptoms have markedly improved after treatment, and as a result, I will discharge patient. Special discussion: Based on the patient's history, exam and DX evaluation, there is no indication for emergent intervention or inpatient TX. It is understood by the patient/guardian that if the SXs persist or worsen they need to return immediately for re-evaluation. 03/23 18:30 Order name: Dressing - Wound; Complete Time: 19:49 cp 03/23 18:30 Order name: Gloves, Sterile; Complete Time: 19:49 cp 03/23 18:30 Order name: Setup Suture Tray; Complete Time: 19:49 cp 03/23 18:30 Order name: Wound Care: please clean wound; Complete Time: 19:46 cp 03/23 20:03 Order name: Wound dressing; Complete Time: 20:07 cp Administered Medications: 19:46 Drug: Boostrix Tdap IM 0.5 ml IM once; as a single dose Route: IM; Site: left deltoid; cp4 20:07 Follow up: Response: No adverse reaction cp4 20:07 Drug: Lidocaine Infiltration (2 %) 5 ml 5 ml Infiltration once; with epinephrine {Note: cp4 Administered by provider..} Volume: 5 ml; Route: Infiltration; Disposition: 03/24 15:01 Chart complete. cp Disposition Summary: 03/23/24 20:15 Discharge Ordered Notes: Location: Home cp Problem: new cp Symptoms: have improved cp Condition: Stable cp Diagnosis - Laceration without foreign body of unspecified part of head cp Followup: cp - With: Private Physician - When: 7 - 10 days - Reason: Staple/Suture removal Discharge Instructions: - Discharge Summary Sheet cp - Head Injury, Adult cp - Facial Laceration cp Forms: - Medication Reconciliation Form cp - Antibiotic Education cp - Prescription Opioid Use cp - Patient Portal Instructions cp - Leadership Thank You Letter cp Prescriptions: - Ibuprofen 800 mg Oral Tablet - take 1 tablet ORAL route every 8 hours As needed take with food; 30 tablet; cp Refills: 0, Product Selection Permitted Addendum: 23:25 Co-signature as Attending Physician, Hussain Calabrese MD I agree with the assessment and c mojica plan of care. Signatures: Hussain Calabrese MD MD cha Page, Corey PA PA cp Lianna Mayen, RN RN me1 Sharifa Meeks cp4
[2024-03-23 20:49] VITALS: TEMP 98.3; O2SAT 100
[2024-03-23 20:50] VITALS: BP 148/95
== END 2024-03-23 20:31 | disposition home or self-care (01) ==
LOC: ER 17:57
DX: S01.81XA Laceration without foreign body of other part of head, initial encounter (principal); W22.8XXA Striking against or struck by other objects, initial encounter
CPT/HCPCS: 12001; 96372; 99284; J2003

== ENCOUNTER 2024-03-31 22:38 | Emergency (ER) | payer OTHER ==
--- NOTE | 2024-03-31 22:53 | EDPHYS ---
Physician Documentation [facility] Name: Tayo Lacy Age: 33 yrs Sex: Male : 1990 Arrival Date: 03/31/2024 Time: 22:38 Bed IW10 Private MD: ED Physician Buzz Pak HPI: 03/31 23:57 This 33 yrs old Male presents to ER via Ambulatory with complaints of Suture sb4 Removal. 23:57 The patient has sutures on the forehead. Previous treatment: The patient was initially sb4 treated 8 day(s) ago, the [facility] was [facility] at [facility], Treatment type: The patient's original treatment included sutures, Previous recheck: the patient has not been checked since the original treatment. Sutures/chuck progress: The patient has no c/o's. The wound is well-healing with no redness, swelling, discharge, or dehiscence reported. The patient has not experienced similar symptoms in the past. The patient has not recently seen a physician. Historical: - Allergies: 22:49 No Known Allergies; al5 - PMHx: 22:49 Lazcano's Palsy; al5 - PSHx: 22:49 None; al5 - Immunization history:: Adult Immunizations up to date. - Infectious Disease History:: Denies. - Social history:: Smoking status: Patient denies any tobacco usage or history of. ROS: 23:57 Constitutional: Negative for fever, chills, and weight loss, sb4 23:57 Skin: Positive for laceration(s), 23:57 All other systems are negative, Exam: 23:57 Constitutional: This is a well developed, well nourished patient who is awake, alert, sb4 and in no acute distress. Head/Face: Normocephalic, atraumatic. Eyes: Extra-ocular motions intact. Periorbital areas with no swelling, redness, or edema. ENT: Mucous membranes moist. Respiratory: No increased work of breathing, no retractions or nasal flaring. 23:57 Skin: Wound recheck: Suture laceration closure: the wound is healing well, the edges are well approximated, no evidence of dehiscence, no drainage, no erythema, no swelling, Vital Signs: 22:48 BP 153 / 103; Pulse 80; Resp 16; Temp 98.3; Pulse Ox 100% on R/A; Weight 99.79 kg; al5 Height 5 ft. 6 in. ; Pain 0/10; 22:55 BP 153 / 98; al5 22:48 Body Mass Index 35.51 (99.79 kg, 167.64 cm) al5 22:48 Pain Scale: Adult al5 Procedures: 23:57 Suture/Staple removal: Removed 5 sutures, from forehead, site appears well healed, sb4 Patient tolerated well. MDM: 22:44 Medical Screening Exam initiated sb4 23:57 Data reviewed: vital signs, nurses notes, and as a result, I will discharge patient. sb4 Counseling: I had a detailed discussion with the patient and/or guardian regarding the historical points, exam findings, and any diagnostic results supporting the discharge/admit diagnosis, the presence of at least one elevated blood pressure reading (>120/80) during this emergency department visit, the need for outpatient follow up, for definitive care, to return to the emergency department if symptoms worsen or persist or if there are any questions or concerns that arise at home. Administered Medications: No medications were administered Disposition: 04/01 06:16 Co-signature as Attending Physician, Buzz aPk MD I agree with the assessment sp4 and plan of care. I reviewed the patient's care provided by the Advanced Practice Provider and agree with the diagnosis and treatment plan. Disposition Summary: 03/31/24 22:52 Discharge Ordered Notes: Location: Home sb4 Problem: new sb4 Symptoms: have improved sb4 Condition: Stable sb4 Diagnosis - Encounter for removal of sutures sb4 - Elevated blood-pressure reading, without diagnosis of hypertension sb4 Followup: sb4 - With: Patti Mcnamara, DO - When: 1 week - Reason: Continuance of care Followup: sb4 - With: Bhargav Tabares DO - When: 1 week - Reason: Continuance of care Discharge Instructions: - Discharge Summary Sheet sb4 - Suture Removal, Care After sb4 - How to Take Your Blood Pressure, [id number] sb4 Forms: - Patient Portal Instructions sb4 - Leadership Thank You Letter sb4 Signatures: Mary Ang PA-C PA-C sb4 Buzz Pak MD MD sp4 Afia Thompson RN RN al5
--- NOTE | 2024-03-31 22:53 | ER ---
Nurse's Notes [facility] Name: Tayo Lacy Age: 33 yrs Sex: Male : 1990 Arrival Date: 03/31/2024 Time: 22:38 Bed IW10 Private MD: Diagnosis: Encounter for removal of sutures;Elevated blood-pressure reading, without diagnosis of hypertension Presentation: 03/31 22:48 Chief complaint: Patient states: needs sutures removed from R eyebrow. Coronavirus al5 screen: At this time, the client does not indicate any symptoms associated with coronavirus-19. Ebola Screen: No symptoms or risks identified at this time. Initial Sepsis Screen: Does the patient meet any 2 criteria? No. Patient's initial sepsis screen is negative. Does the patient have a suspected source of infection? No. Patient's initial sepsis screen is negative. Risk Assessment: Do you want to hurt yourself or someone else? Patient reports no desire to harm self or others. Onset of symptoms was March 31, 2024. 22:48 Method Of Arrival: Ambulatory al5 22:48 Acuity: JORGE 5 al5 Triage Assessment: 22:50 General: Appears in no apparent distress. comfortable, Behavior is calm, cooperative. al5 Pain: Denies pain. EENT: No signs and/or symptoms were reported regarding the EENT system. Neuro: Level of Consciousness is awake, alert, obeys commands, Oriented to person, place, time, situation. Cardiovascular: Capillary refill < 3 seconds Patient's skin is warm and dry. Respiratory: Airway is patent Respiratory effort is even, unlabored, Respiratory pattern is regular, symmetrical. GI: No signs and/or symptoms were reported involving the gastrointestinal system. : No signs and/or symptoms were reported regarding the genitourinary system. Derm: Skin is intact, is healthy with good turgor, Skin is pink, warm \T\ dry. wound without redness, drainage, edema. patient wound clean and healed. Musculoskeletal: No signs and/or symptoms reported regarding the musculoskeletal system. Historical: - Allergies: 22:49 No Known Allergies; al5 - PMHx: 22:49 Lazcano's Palsy; al5 - PSHx: 22:49 None; al5 - Immunization history:: Adult Immunizations up to date. - Infectious Disease History:: Denies. - Social history:: Smoking status: Patient denies any tobacco usage or history of. Screenin:51 [facility] ED Fall Risk Assessment (Adult) History of falling in the last 3 months, al5 including since admission No falls in past 3 months (0 pts) Confusion or Disorientation No (0 pts) Intoxicated or Sedated No (0 pts) Impaired Gait No (0 pts) Mobility Assist Device Used No (0 pt) Altered Elimination No (0 pt) Score/Fall Risk Level 0 - 2 = Low Risk Oriented to surroundings, Maintained a safe environment, Hourly rounding (assess needs \T\ fall precautionary measures) done. Abuse screen: Denies threats or abuse. Denies injuries from another. Nutritional screening: No deficits noted. Tuberculosis screening: No symptoms or risk factors identified. Assessment: 22:49 Reassessment: provider in triage room speaking with patient. patient sutures removed at al5 this time. Pain: Denies pain. 22:51 Reassessment: see triage assessment. al5 Vital Signs: 22:48 BP 153 / 103; Pulse 80; Resp 16; Temp 98.3; Pulse Ox 100% on R/A; Weight 99.79 kg; al5 Height 5 ft. 6 in. ; Pain 0/10; 22:55 BP 153 / 98; al5 22:48 Body Mass Index 35.51 (99.79 kg, 167.64 cm) al5 22:48 Pain Scale: Adult al5 ED Course: 22:39 Patient arrived in ED. jj6 22:43 [facility] sb4 22:43 Buzz Pak MD is Attending Physician. sb4 22:49 Triage completed. al5 22:51 Patti Mcnamara DO is Referral Physician. sb4 22:51 Arm band placed on right wrist. Patient placed in waiting room, in view of staff al5 members. 22:51 No provider procedures requiring assistance completed. Patient did not have IV access al5 during this emergency room visit. 22:52 Bhargav Tabares DO is Referral Physician. sb4 22:52 Patient has correct armband on for positive identification. Provided Education on: al5 discharge follow up. 22:54 Afia Thompson, KATEY is Primary Nurse. al5 Administered Medications: No medications were administered Medication: 22:51 VIS not applicable for this client. al5 Outcome: 22:52 Discharge ordered by . sb4 22:54 Discharged to home ambulatory, al5 22:54 Condition: good 22:54 Discharge instructions given to patient, Instructed on discharge instructions, follow up and referral plans. Demonstrated understanding of instructions, follow-up care, 22:55 Patient left the ED. al5 Signatures: Leena Lee Sophia, PA-C PA-C sb4 Afia Thompson, RN RN al5
[2024-03-31 23:16] VITALS: TEMP 98.3; O2SAT 100
[2024-03-31 23:17] VITALS: BP 153/98
== END 2024-03-31 22:55 | disposition home or self-care (01) ==
LOC: ER 22:38
DX: Z48.02 Encounter for removal of sutures (principal); R03.0 Elevated blood-pressure reading, without diagnosis of hypertension
CPT/HCPCS: 99282